=== PATIENT | male | born 1965 | race Caucasian/White ===

== ENCOUNTER 2017-11-15 00:01 | Emergency (ER) | payer BC, SELFPAY ==
[2017-11-15 00:01] VITALS: BP 150/95; PULSE 98; RESP 20; TEMP 37; O2SAT 98; BMI 30.2
--- NOTE | 2017-11-15 00:06 | ED.RN ---
RN CALLED FOR EKG, PULLED OLD EKG'S FOR
--- NOTE | 2017-11-15 00:11 | EKG12_ITS ---
Test Reason : CP Blood Pressure : / mmHG Vent. Rate : 084 BPM Atrial Rate : 084 BPM P-R Int : 170 ms QRS Dur : 078 ms QT Int : 394 ms P-R-T Axes : 041 024 048 degrees QTc Int : 465 ms Normal sinus rhythm Nonspecific T wave abnormality Abnormal ECG Confirmed by TONY MILLER ([id number]), editor magazine [employer] ([id number]) on 11/25/2017 6:21:58 PM Referred By: JENNIFER Confirmed By:TONY MILLER
--- NOTE | 2017-11-15 00:14 | ED.VISSUMM ---
- ER Visit Summary Date of Service: 11/15/17 Chief Complaint: Chest pain History of Present Illness: The patient is a 52 M wax and waning chest pain for the past 2 hours. Substernal radiating to the back, states sharp in nature. States got clammy. No nausea or dyspnea. History of hypertension, hypercholesterolemia. Denies tobacco history. Family history of MIs in his father, grandfather, uncle. Patient states he had a heart cath in 2016 at [facility] due to unclear etiology from syncopal episode. He is followed by Dr. Garrett. States history of paroxysmal atrial fibrillation. No aspirin therapy daily. States takes it when he remembers. States currently pain is 3 out of 10. Physical Examination: General: Alert and oriented ?3, no acute distress HEENT: Normocephalic, atraumatic. Moist mucosa membranes Neck: supple, nontender. Cardiovascular: Regular rate and rhythm, no murmurs Respiratory: Normal breath sounds, symmetric, no distress Abdomen: Soft, nontender, nondistended Extremities: Nontender, no edema, pulses intact ?4. Symmetric radial pulses. Neuro: no focal neurological deficits. Test Results: EKG: Sinus rate of 84, no ST or T-wave changes. Troponin negative ?2. Hemoglobin 14.7. Creatinine 1.22. Emergency Department Course and Treatment: Patient had chest pain, EKG shows no acute changes. His given aspirin and nitro sublingual ?1. He did have a vasovagal episode with nausea. Zofran was given. Fluids was given. Symptoms improved after the one nitro. However with sharp pains to the back, discuss further workup. CT scan obtained to rule out dissection which was negative. There is no PE. Troponin negative ?2. Heart score is a 3. Patient remained symptom-free. 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 He will return to ED if any symptoms return. All questions were answered. Treatment Plan: [] Disposition: Discharge Impression: Acute chest pain This note was generated with [employer] dictation software. It may contain incorrect words, spelling, and punctuation that were not noted in review of the chart prior to signing ED Disposition - Plan for ED Patient: Disposition: Home or Assisted Living Chief Complaint: Chest Pain Diagnosis: Chest pain Instructions: ED Chest Pain Atypical Unkn Cause Referrals: Hill Levine DO [Primary Care Provider] - Crow Garrett MD [STAFF PHYSICIAN] - 1 Day
--- NOTE | 2017-11-15 00:17 | ED.DCSUM_ITS ---
- ER Visit Summary Date of Service: 11/15/17 Chief Complaint: Chest pain History of Present Illness: The patient is a 52 M wax and waning chest pain for the past 2 hours. Substernal radiating to the back, states sharp in nature. States got clammy. No nausea or dyspnea. History of hypertension, hypercholesterolemia. Denies tobacco history. Family history of MIs in his father, grandfather, uncle. Patient states he had a heart cath in 2016 at [facility] due to unclear etiology from syncopal episode. He is followed by Dr. Garrett. States history of paroxysmal atrial fibrillation. No aspirin therapy daily. States takes it when he remembers. States currently pain is 3 out of 10. Physical Examination: General: Alert and oriented ?3, no acute distress HEENT: Normocephalic, atraumatic. Moist mucosa membranes Neck: supple, nontender. Cardiovascular: Regular rate and rhythm, no murmurs Respiratory: Normal breath sounds, symmetric, no distress Abdomen: Soft, nontender, nondistended Extremities: Nontender, no edema, pulses intact ?4. Symmetric radial pulses. Neuro: no focal neurological deficits. Test Results: EKG: Sinus rate of 84, no ST or T-wave changes. Troponin negative ?2. Hemoglobin 14.7. Creatinine 1.22. Emergency Department Course and Treatment: Patient had chest pain, EKG shows no acute changes. His given aspirin and nitro sublingual ?1. He did have a vasovagal episode with nausea. Zofran was given. Fluids was given. Symptoms improved after the one nitro. However with sharp pains to the back, discuss further workup. CT scan obtained to rule out dissection which was negative. There is no PE. Troponin negative ?2. Heart score is a 3. Patient remained symptom-free. Patient will call his domestic helper for outpatient follow-up and further testing. He will return to ED if any symptoms return. All questions were answered. Treatment Plan: [] Disposition: Discharge Impression: Acute chest pain This note was generated with [employer] dictation software. It may contain incorrect words, spelling, and punctuation that were not noted in review of the chart prior to signing ED Disposition - Plan for ED Patient: Disposition: Home or Assisted Living Chief Complaint: Chest Pain Diagnosis: Chest pain Instructions: ED Chest Pain Atypical Unkn Cause Referrals: Hill Levine DO [Primary Care Provider] - Crow Garrett MD [STAFF PHYSICIAN] - 1 Day
[2017-11-15] MEDS: Aspirin 81 MG TAB.CHEW 324 MG PO (00:19)
[2017-11-15 00:20] VITALS: BP 134/88; PULSE 75
[2017-11-15 00:22] LABS: Absolute Lymphocyte Count 3.52 X10^3/ul (0.83-4.51); Absolute Neutrophil Count 3.1 X10^3/uL (2.0-7.7); Basophil# 0.02 X10^3/uL; Basophil% 0.3 % (0-1); Eosinophil# 0.17 X10^3/uL; Eosinophils% 2.2 % (0-5); Hematocrit 42.7 % (40-54); Hemoglobin 14.7 g/dl (13.0-16.5); Lymphocyte # 3.52 X10^3/ul (4.0); Lymphocyte % 45.3 % (19-41); Mean Corp Hgb Conc 34.4 g/gl (32-36); Mean Corpuscular Hgb 29.6 pg (27.0-32.0); Mean Corpuscular Volume 86.1 fL (80-94); Mean Platelet Vol. 8.9 fl (6.2-12.0); Monocyte# 0.94 X10^3/uL; Monocyte% 12.1 % (0-10); Neutrophil # 3.11 X10^3/uL (2.7-7.7); Platelet Count 197 K/mm3 (150-450); RBC Distribution Width CV 12.7 % (11.6-14.6); Red Blood Count 4.96 M/mm3 (4.6-6.2); White Blood Count 7.8 K/mm3 (4.4-11.0)
[2017-11-15] MEDS: Ondansetron 4 MG/2 ML Vial IV (00:30)
[2017-11-15 00:32] LABS: POSITIVE COUNT NO; POSITIVE DIFFERENTIAL NO; POSITIVE MORPHOLOGY NO
[2017-11-15 00:46] LABS: Anion Gap 7 (5-15); BUN 19 mg/dL (7-18); BUN/Creat Ratio 15.6 RATIO (10-20); Calcium,Total 8.5 mg/dL (8.5-10.1); Chloride 107 mmol/L (98-107); Creatinine, Serum 1.22 mg/dL (0.70-1.30); EST Glomerular Filtration Rate 66 mL/min (>60); Est Glom Filt Rate - Afr Amer 79 mL/min (>60); Estimated Creatinine Clearance 71.47 ml/min; Glucose 129 mg/dL (74-106); Potassium 3.2 mmol/L (3.5-5.1); Sodium Level 139 mmol/L (136-145)
--- NOTE | 2017-11-15 00:59 | CT_ITS ---
STUDY: CTA CHEST REASON FOR EXAM: Male, 52 years old. Chest pain with shortness of breath RADIATION DOSAGE (If Supplied By Facility): CTDIvol = ( 16.52 ) mGy, DLP = ( 682.91 ) mGycm TECHNIQUE: The examination was performed with the intravenous administration of 100ML ml of Isovue 370 contrast material. Post-processing of the angiographic images was performed, with multiplanar reformation and 3D reconstruction. Individualized dose optimization techniques were used for this CT. COMPARISON: None. FINDINGS: Normal enhancement of the main pulmonary artery and right and left pulmonary arteries. Normal enhancement of the bilateral peripheral pulmonary arteries. There is no demonstrated pulmonary embolism. Thoracic aorta demonstrates no aneurysmal dilatation or dissection. Borderline cardiomegaly. No pericardial effusion. Normal mediastinum. Normal hilar regions. Normal visualized trachea and bronchi. The lungs are well expanded. Bilateral dependent atelectasis versus scar formation. No confluent airspace infiltrate. Linear atelectasis versus scar along the right minor fissure. No pleural effusion or pneumothorax Normal chest wall structures. Normal osseous structures. Normal visualized upper abdomen. CT/CTA Chest W/WO Contrast IMPRESSION: 1. No evidence of acute cardiopulmonary disease 2. Borderline cardiomegaly, unchanged. 3. Bibasilar atelectasis. Electronically Signed: Anish Walls MD at 2:53 EDT Tel , Service support ,
[2017-11-15 01:26] VITALS: BP 107/64; PULSE 84; RESP 18; O2SAT 95
[2017-11-15 02:05] VITALS: BP 119/69; PULSE 83; RESP 16; O2SAT 97
[2017-11-15 04:12] VITALS: PULSE 76; RESP 16; O2SAT 97
[2017-11-15 04:51] VITALS: PULSE 76; RESP 16; O2SAT 97
== END 2017-11-15 04:52 | disposition home or self-care (01) ==
PROVIDERS: Emergency Provider Emergency Medicine; Family Provider Preventive Medicine Occupational Medicine; PCP Preventive Medicine Occupational Medicine
DX: R07.9 Chest pain, unspecified (principal); I48.0 Paroxysmal atrial fibrillation; I10 Essential (primary) hypertension; E78.00 Pure hypercholesterolemia, unspecified; K21.9 Gastro-esophageal reflux disease without esophagitis; Z79.82 Long term (current) use of aspirin; Z82.49 Family history of ischemic heart disease and other diseases of the circulatory system
CPT/HCPCS: 71275; 80048; 84484; 85025; 93005; 96374; 99284; J7030; Q9967; A4216; J2405

== ENCOUNTER → 2018-08-14 08:13 | Outpatient (CLI) | payer BC, SELFPAY ==
[2018-08-14 10:05] LABS: Absolute Neutrophil Count 3.1 X10^3/uL (2.0-7.7); Basophil# 0.03 X10^3/uL; Basophil% 0.5 % (0-1); Eosinophil# 0.11 X10^3/uL; Eosinophils% 1.8 % (0-5); Hematocrit 47.2 % (40-54); Hemoglobin 15.5 g/dl (13.0-16.5); Mean Corp Hgb Conc 32.8 g/gl (32-36); Mean Corpuscular Hgb 28.9 pg (27.0-32.0); Mean Corpuscular Volume 87.9 fL (80-94); Mean Platelet Vol. 9.7 fl (6.2-12.0); Monocyte% 8.3 % (0-10); Neutrophil # 3.11 X10^3/uL (2.7-7.7); Neutrophil % 51.2 % (47-70); Platelet Count 232 K/mm3 (150-450); RBC Distribution Width CV 12.7 % (11.6-14.6); RBC Distribution Width SD 40.5 fl (35.1-43.9); Red Blood Count 5.37 M/mm3 (4.6-6.2); White Blood Count 6.1 K/mm3 (4.4-11.0)
[2018-08-14 10:09] LABS: POSITIVE COUNT NO; POSITIVE DIFFERENTIAL NO; POSITIVE MORPHOLOGY NO
[2018-08-14 10:34] LABS: ALB/GLOB Ratio 1.2 RATIO (0.9-2.4); AST(SGOT) 29 U/L (15-37); Alanine Aminotransfer ALT/SGPT 45 U/L (16-61); Albumin, Serum 4.1 g/dL (3.2-5.0); Alkaline Phosphatase 79 U/L (45-117); Anion Gap 9 (5-15); BUN 16 mg/dL (7-18); BUN/Creat Ratio 14.2 RATIO (10-20); Calcium,Total 8.4 mg/dL (8.5-10.1); Chloride 106 mmol/L (98-107); Creatinine, Serum 1.13 mg/dL (0.70-1.30); EST Glomerular Filtration Rate 72 mL/min (>60); Est Glom Filt Rate - Afr Amer 87 mL/min (>60); Globulin 3.5 g/dL (2.2-4.2); Glucose 121 mg/dL (74-106); Potassium 3.7 mmol/L (3.5-5.1); Protein, Total 7.6 g/dL (6.4-8.2); Sodium Level 140 mmol/L (136-145)
[2018-08-16 20:06] LABS: HEPATITIS B SURFACE AG Negative (Negative); Hepatitis A AB, Total Negative (Negative); Hepatitis A IgM Antibody Negative (Negative); Hepatitis B Core AB IgM Negative (Negative); Hepatitis B Core Ab Total Negative (Negative); Hepatitis C Ab <0.1 s/co ratio (0.0-0.9); QNTFERON TB Mitogen Value > 10.00 IU/mL (.); QNTFERON TB Nil Value 0.04 IU/mL (.); QNTFERON TB1+ Ag Value 0.03 IU/mL (.); QNTFERON TB2+ Ag Value 0.03 IU/mL (.)
[2018-08-17 09:43] LABS: Hep B Surface Antibodies Non Reactive (.)
[2018-08-17 09:44] LABS: QNTIFERON TB Positive Criteria Negative (Negative)
== END ==
PROVIDERS: Family Provider Preventive Medicine Occupational Medicine; PCP Preventive Medicine Occupational Medicine; Referring Provider Dermatology Pediatric Dermatology; Visit Provider Dermatology Pediatric Dermatology
DX: L40.0 Psoriasis vulgaris (principal); L40.59 Other psoriatic arthropathy
CPT/HCPCS: 36415; 80053; 85025; 86480; 86704; 86705; 86706; 86708; 86709; 86803; 87340

== ENCOUNTER → 2019-05-19 07:55 | Outpatient (CLI) | payer BC, SELFPAY ==
[2019-05-12 14:39] VITALS: BMI 30.5
[2019-05-19 09:09] LABS: AST(SGOT) 25 U/L (15-37); Alanine Aminotransfer ALT/SGPT 34 U/L (16-61); Albumin, Serum 3.5 g/dL (3.2-5.0); Alkaline Phosphatase 66 U/L (45-117); Bilirubin, Direct 0.09 mg/dL (0.00-0.30); Cholesterol 174 mg/dL (200); High Density Lipoprotein 35 mg/dL; Protein, Total 6.5 g/dL (6.4-8.2); Triglycerides 216 mg/dL; Very Low Density Lipoprotein 43 mg/dL (5-40)
== END ==
PROVIDERS: Family Provider Preventive Medicine Occupational Medicine; PCP Preventive Medicine Occupational Medicine; Referring Provider Internal Medicine Cardiovascular Disease; Visit Provider Internal Medicine Cardiovascular Disease
DX: E78.5 Hyperlipidemia, unspecified (principal)
CPT/HCPCS: 36415; 80061; 80076

== ENCOUNTER → 2019-11-11 07:21 | Outpatient (CLI) | payer BC, SELFPAY ==
[2019-05-27 09:22] VITALS: BMI 30.5
[2019-11-11 08:28] LABS: AST(SGOT) 37 U/L (15-37); Alanine Aminotransfer ALT/SGPT 66 U/L (16-61); Albumin, Serum 3.6 g/dL (3.2-5.0); Alkaline Phosphatase 82 U/L (45-117); Anion Gap 6 (5-15); BUN 14 mg/dL (7-18); BUN/Creat Ratio 11.8 RATIO (10-20); Bilirubin, Direct 0.07 mg/dL (0.00-0.30); Calcium,Total 8.3 mg/dL (8.5-10.1); Chloride 113 mmol/L (98-107); Creatinine, Serum 1.19 mg/dL (0.70-1.30); EST Glomerular Filtration Rate 67 mL/min (>60); Est Glom Filt Rate - Afr Amer 81 mL/min (>60); Globulin 3.4 g/dL (2.2-4.2); Glucose 114 mg/dL (74-106); PSA,Total - Annual Screen 0.52 ng/mL (0.00-4.00); Potassium 4.1 mmol/L (3.5-5.1); Sodium Level 143 mmol/L (136-145)
== END ==
PROVIDERS: PCP Preventive Medicine Occupational Medicine; Referring Provider Preventive Medicine Occupational Medicine; Visit Provider Preventive Medicine Occupational Medicine
DX: R74.8 Abnormal levels of other serum enzymes (principal); I10 Essential (primary) hypertension; Z12.5 Encounter for screening for malignant neoplasm of prostate
CPT/HCPCS: 36415; 80048; 80076; 84153; G0103

== ENCOUNTER → 2019-12-10 07:41 | Outpatient (CLI) | payer BC, SELFPAY ==
[2019-05-27 09:22] VITALS: BMI 30.5
[2019-12-10 10:20] LABS: Basophil# 0.05 X10^3/uL; Basophil% 0.7 % (0-1); Eosinophils% 2.8 % (0-5); Hematocrit 46.1 % (40-54); Hemoglobin 15.1 g/dL (13.0-16.5); Lymphocyte % 45.1 % (19-41); Mean Corp Hgb Conc 32.8 g/dL (32-36); Mean Corpuscular Hgb 29.7 pg (27.0-32.0); Mean Corpuscular Volume 90.6 fL (80-94); Monocyte# 0.63 X10^3/uL; Monocyte% 8.9 % (0-10); NRBC Flagged by Analyzer 0 % (0-5); Neutrophil # 2.98 X10^3/uL (2.7-7.7); Neutrophil % 42.1 % (47-70); Platelet Count 233 K/mm3 (150-450); RBC Distribution Width SD 42.9 fl (35.1-43.9); Red Blood Count 5.09 M/mm3 (4.6-6.2); White Blood Count 7.1 K/mm3 (4.4-11.0)
[2019-12-10 10:37] LABS: ALB/GLOB Ratio 1.1 RATIO (0.9-2.4); AST(SGOT) 29 U/L (15-37); Alanine Aminotransfer ALT/SGPT 63 U/L (16-61); Albumin, Serum 3.8 g/dL (3.2-5.0); Alkaline Phosphatase 82 U/L (45-117); Anion Gap 6 (5-15); BUN 20 mg/dL (7-18); BUN/Creat Ratio 17.7 RATIO (10-20); Calcium,Total 8.7 mg/dL (8.5-10.1); Chloride 109 mmol/L (98-107); Creatinine, Serum 1.13 mg/dL (0.70-1.30); EST Glomerular Filtration Rate 71 mL/min (>60); Est Glom Filt Rate - Afr Amer 86 mL/min (>60); Globulin 3.5 g/dL (2.2-4.2); Glucose 151 mg/dL (74-106); Potassium 4.1 mmol/L (3.5-5.1); Protein, Total 7.3 g/dL (6.4-8.2); Sodium Level 139 mmol/L (136-145)
[2019-12-12 20:07] LABS: QNTFERON TB Mitogen Value > 10.00 IU/mL (.); QNTFERON TB Nil Value 0.03 IU/mL (.); QNTFERON TB1+ Ag Value 0.04 IU/mL (.); QNTFERON TB2+ Ag Value 0.02 IU/mL (.)
[2019-12-12 22:31] LABS: QNTIFERON TB Positive Criteria Negative (Negative)
== END ==
PROVIDERS: PCP Preventive Medicine Occupational Medicine; Referring Provider Dermatology Pediatric Dermatology; Visit Provider Dermatology Pediatric Dermatology
DX: L40.0 Psoriasis vulgaris (principal)
CPT/HCPCS: 36415; 80053; 85025; 86480

== ENCOUNTER → 2020-05-11 14:18 | Outpatient (CLI) | payer BC, SELFPAY ==
[2019-05-27 09:22] VITALS: BMI 30.5
--- NOTE | 2020-05-11 14:25 | RAD_ITS ---
STUDY: X-RAY CHEST REASON FOR EXAM: Male, 55 years old. SUSPECTED COVID. SYMPTOMS STARTED SATURDAY. TECHNIQUE: PA and lateral views of the chest. COMPARISON: 12/05/2015. FINDINGS: There is persistent elevation of the right hemidiaphragm. There is no new focal consolidation. Normal size heart. Normal mediastinum and bernardino. Normal visualized pulmonary arteries. Normal visualized aortic arch and descending thoracic aorta. Normal visualized thoracic spine. Normal visualized ribs, clavicles, and shoulders. There is no demonstrated abnormality of the visualized soft tissue structures of the upper abdomen. RAD/Chest PA and Lateral IMPRESSION: No acute cardiopulmonary process. Electronically Signed: Molly Workman MD at 22:46 EST Tel , Service support ,
== END ==
PROVIDERS: PCP Preventive Medicine Occupational Medicine; Referring Provider Internal Medicine Pulmonary Disease; Visit Provider Internal Medicine Pulmonary Disease
DX: R05 Cough (principal); R50.9 Fever, unspecified; Z20.828 Contact with and (suspected) exposure to other viral communicable diseases
CPT/HCPCS: 71046

== ENCOUNTER 2020-06-18 14:44 | Emergency (ER) | payer BC, SELFPAY ==
[2019-05-27 09:22] VITALS: BMI 30.5
[2020-06-18 14:45] VITALS: BP 162/113; PULSE 82; RESP 22; TEMP 36.1; O2SAT 98; BMI 31.1
--- NOTE | 2020-06-18 15:04 | EKG12_ITS ---
Test Reason : CP Blood Pressure : / mmHG Vent. Rate : 080 BPM Atrial Rate : 080 BPM P-R Int : 160 ms QRS Dur : 084 ms QT Int : 400 ms P-R-T Axes : 042 028 061 degrees QTc Int : 461 ms Normal sinus rhythm with sinus arrhythmia Nonspecific T wave abnormality Prolonged QT Abnormal ECG Confirmed by JUSTIN GONZALEZ, SUGEY ([id number]), editor book CHELSEA KOWALSKI ([id number]) on 06/20/2020 8:47:22 AM Referred By: PRO Confirmed By:SUGEY ANDERSON MD
[2020-06-18 15:10] VITALS: O2SAT 97
--- NOTE | 2020-06-18 15:14 | RAD_ITS ---
STUDY: X-RAY CHEST REASON FOR EXAM: Male, 55 years old. CP started to left chest around 12 today. pain to back and also some SOB TECHNIQUE: AP COMPARISON: 12/05/2015 FINDINGS: The lungs are clear and expanded. There is no demonstrated pleural abnormality. Normal size heart. Normal mediastinum and bernardino. Normal visualized pulmonary arteries. Normal visualized aortic arch and descending thoracic aorta. Normal visualized thoracic spine. Normal visualized ribs, clavicles, and shoulders. There is no demonstrated abnormality of the visualized soft tissue structures of the upper abdomen. RAD/Chest 1 View (Portable) IMPRESSION: Stable, nonacute portable x-ray examination of the chest. Electronically Signed: Benjamin Campoverde MD (Brooks) at 15:28 EST , Service support ,
--- NOTE | 2020-06-18 15:17 | CT_ITS ---
STUDY: CTA CHEST REASON FOR EXAM: Male, 55 years old. CP AND BACK PAIN, ? DISSECTION, A-FIB, HTN, GERD, HAD HEART CATH RADIATION DOSAGE (If Supplied By Facility): CTDIvol = ( 14.57 ) mGy, DLP = ( 710.91 ) mGycm TECHNIQUE: The examination was performed with the intravenous administration of IV 100mL Isovue-370. Post-processing of the angiographic images was performed, with multiplanar reformation and 3D reconstruction. Individualized dose optimization techniques were used for this CT. COMPARISON: 11/15/2017 FINDINGS: Normal enhancement of the main pulmonary artery and right and left pulmonary arteries. Normal enhancement of the bilateral peripheral pulmonary arteries. There is no demonstrated pulmonary embolism. Normal thoracic aorta and visualized great vessels. There is no demonstrated aortic dissection. Normal heart and pericardium. Normal mediastinum. Normal hilar regions. Normal visualized trachea and bronchi. The lungs are well expanded. Minimal atelectasis in the lung bases. Normal pleura. Normal chest wall structures. Normal osseous structures. There is diffuse fatty infiltration of the liver. CT/CTA Chest W/WO Contrast IMPRESSION: No central or segmental pulmonary embolism. Electronically Signed: Benjamin Campoverde MD (Brooks) at 15:53 EST , Service support ,
[2020-06-18 15:19] LABS: Absolute Neutrophil Count 4.1 X10^3/uL (2.0-7.7); Basophil# 0.05 X10^3/uL; Basophil% 0.6 % (0-1); Eosinophils% 1.3 % (0-5); Hematocrit 46.5 % (40-54); Hemoglobin 15.4 g/dL (13.0-16.5); Lymphocyte % 38.4 % (19-41); Mean Corp Hgb Conc 33.1 g/dL (32-36); Mean Corpuscular Hgb 29.6 pg (27.0-32.0); Mean Corpuscular Volume 89.4 fL (80-94); Mean Platelet Vol. 9.4 fl (6.2-12.0); Monocyte# 0.55 X10^3/uL; NRBC Flagged by Analyzer 0 % (0-5); Neutrophil # 4.08 X10^3/uL (2.7-7.7); Neutrophil % 52.3 % (47-70); Platelet Count 266 K/mm3 (150-450); RBC Distribution Width CV 12.5 % (11.6-14.6); RBC Distribution Width SD 41.3 fl (35.1-43.9); White Blood Count 7.8 K/mm3 (4.4-11.0)
--- NOTE | 2020-06-18 15:23 | ED.VISSUMM ---
- ER Visit Summary Date of Service: 06/18/20 Chief Complaint: Back and chest pain History of Present Illness: The patient is a 55 M history of hypertension high cholesterol. Prior cardiac cath which he states was negative in 2016 and at [facility]. Patient states around 11 AM today he had atraumatic mid to upper back pain that started radiating to his chest. Associated dyspnea. He denies any falls or trauma. No history of DVT or PE. No pleuritic nature to the pain. No hemoptysis. No leg pain or swelling. He denies any recent travel, surgery or immobilization. Is never had pain like this before. Currently he says he is almost pain-free. Physical Examination: Middle-aged male no acute distress initial blood pressure elevated 162/113. Pulse ox 90% on room air no signs hypoxia. H EENT exam unremarkable. Neck nontender no lymphadenopathy. No JVD. Lungs clear to auscultation bilaterally. Heart regular rhythm rate about 80 no murmur. Chest wall nontender. Abdomen soft nontender normal bowel sounds no peritoneal signs. Patient moving all 4 extremities. Neurovascular intact. Equal symmetrical radial pulses. Calves are nontender without edema or cords. Back is nontender no reproducible tenderness. Neurologically is awake alert with no focal motor or sensory deficits. Test Results: EKG shows a normal sinus rhythm rate 80 with no acute signs of DC or ischemia. Chest x-ray 1 view interpreted by myself and also the radiologist showed no acute normality. Normal cardiac silhouette and mediastinum. CBC normal white count 7. Hemoglobin 15. Chemistries unremarkable normal creatinine and gap. Troponin normal. D-dimer normal. CTA chest showed no acute abnormality. No dissection nor any pulmonary emboli read by the radiologist and reviewed by me. rEPEAT exam patient is doing well at 5:53 PM. I went over all test results with both he and his on the phone. They feel comfortable him being discharged home. Emergency Department Course and Treatment: Patient be worked up both for cardiac chest pain and possible dissection. Concern is that he is hypertensive and the pain started in his back and then radiated to his chest. He will receive aspirin. Will undergo cardiac work-up along with a CTA of his chest for dissection. Treatment Plan: Outpatient follow-up. Return if worse. Disposition: Discharge Impression: Acute back and chest pain of uncertain etiology History of hypertension and high cholesterol This note was generated with Dragon dictation software. It may contain incorrect words, spelling, and punctuation that were not noted in review of the chart prior to signing ED Disposition - Plan for ED Patient: Referrals: Hill Levine DO [Primary Care Provider] -
[2020-06-18] MEDS: Aspirin 81 MG TAB.CHEW 324 MG PO (15:31)
[2020-06-18 15:34] LABS: Anion Gap 4 (5-15); BUN 16 mg/dL (7-18); BUN/Creat Ratio 14.8 RATIO (10-20); Calcium,Total 8.7 mg/dL (8.5-10.1); Chloride 108 mmol/L (98-107); Creatinine, Serum 1.08 mg/dL (0.70-1.30); EST Glomerular Filtration Rate 75 mL/min (>60); Est Glom Filt Rate - Afr Amer 91 mL/min (>60); Estimated Creatinine Clearance 77.92 ml/min; Glucose 90 mg/dL (74-106); Potassium 3.8 mmol/L (3.5-5.1); Sodium Level 140 mmol/L (136-145)
[2020-06-18 15:39] LABS: D-Dimer Quantitative (DVT/PE) <= 0.27 FEU/ug/m (0.27-0.49)
[2020-06-18 17:16] VITALS: BP 132/75; PULSE 70; RESP 14; O2SAT 97
--- NOTE | 2020-06-18 17:56 | ED.DEP ---
ED Disposition - Plan for ED Patient: Disposition: Home or Assisted Living Instructions: ED Chest Pain, Uncertain Cause Referrals: Hill Levine DO [Primary Care Provider] - 1 Week Additional Instructions: All your test today were normal. Of your primary care physician. Return if you are feeling worse.
[2020-06-18 18:02] VITALS: BP 135/91; PULSE 69; RESP 20; O2SAT 96
== END 2020-06-18 18:14 | disposition home or self-care (01) ==
PROVIDERS: Emergency Provider Emergency Medicine; PCP Preventive Medicine Occupational Medicine
DX: M54.9 Dorsalgia, unspecified (principal); R07.9 Chest pain, unspecified; I10 Essential (primary) hypertension; E78.00 Pure hypercholesterolemia, unspecified; R06.00 Dyspnea, unspecified
CPT/HCPCS: 71045; 71275; 80048; 84484; 85025; 85379; 93005; 99285; Q9967

== ENCOUNTER → 2020-12-02 08:10 | Outpatient (CLI) | payer BC, SELFPAY ==
[2020-12-04 12:06] LABS: QNTFERON TB Mitogen Value > 10.00 IU/mL (.); QNTFERON TB Nil Value 0.04 IU/mL (.); QNTFERON TB1+ Ag Value 0.04 IU/mL (.); QNTFERON TB2+ Ag Value 0.04 IU/mL (.)
[2020-12-04 13:11] LABS: QNTIFERON TB Positive Criteria Negative (Negative)
== END ==
PROVIDERS: PCP Preventive Medicine Occupational Medicine; Referring Provider Dermatology Pediatric Dermatology; Visit Provider Dermatology Pediatric Dermatology
DX: L40.0 Psoriasis vulgaris (principal); L40.59 Other psoriatic arthropathy; Z79.899 Other long term (current) drug therapy
CPT/HCPCS: 36415; 86480

== ENCOUNTER 2021-06-26 13:09 | Outpatient (CLI) | payer OTHER, SELFPAY ==
[2021-06-26 13:22] VITALS: BP 136/102; PULSE 66; RESP 16; TEMP 36.5; O2SAT 100; BMI 28.0
[2021-06-26] MEDS: 0.9% Saline Lock 10 ML Syringe IV (13:25)
[2021-06-26 14:16] VITALS: BP 132/87; PULSE 64; RESP 16; TEMP 36.9; O2SAT 100
[2021-06-26 14:59] VITALS: BP 130/88; PULSE 65; RESP 16; TEMP 36.9; O2SAT 98
== END 2021-06-26 23:59 | disposition home or self-care (01) ==
LOC: MS3OUT 13:09 → MS3 13:09
PROVIDERS: PCP Preventive Medicine Occupational Medicine; Referring Provider Internal Medicine Pulmonary Disease; Visit Provider Internal Medicine Pulmonary Disease
DX: U07.1 COVID-19 (principal)
CPT/HCPCS: J7050; M0243; A4216; Q0244

== ENCOUNTER → 2022-02-26 | Outpatient (CLI) | payer OTHER, SELFPAY ==
[2022-02-26 10:15] LABS: Hemoglobin A1c 6.6 % (3.8-5.6)
[2022-02-26 10:16] LABS: Microalbumin,Random Urine 32.5 mg/L (NO RANGE EST.); Microalbumin:Creatinine Ratio 10.2 mg/g CRE (<30 mg/g CRE)
[2022-02-26 11:01] LABS: ALB/GLOB Ratio 1.1 RATIO (0.9-2.4); AST(SGOT) 26 U/L (15-37); Alanine Aminotransfer ALT/SGPT 45 U/L (16-61); Albumin, Serum 3.4 g/dL (3.2-5.0); Alkaline Phosphatase 67 U/L (45-117); Anion Gap 6 (5-15); BUN 12 mg/dL (7-18); BUN/Creat Ratio 11.9 RATIO (10-20); Calcium,Total 8.7 mg/dL (8.5-10.1); Chloride 109 mmol/L (98-107); Cholesterol 180 mg/dL (200); Creatinine, Serum 1.01 mg/dL (0.70-1.30); EST Glomerular Filtration Rate 80 mL/min (>60); Est Glom Filt Rate - Afr Amer 97 mL/min (>60); Globulin 3.2 g/dL (2.2-4.2); Glucose 120 mg/dL (74-106); High Density Lipoprotein 34 mg/dL; Potassium 3.9 mmol/L (3.5-5.1); Protein, Total 6.6 g/dL (6.4-8.2); Sodium Level 141 mmol/L (136-145); Triglycerides 273 mg/dL; Very Low Density Lipoprotein 55 mg/dL (5-40)
== END | disposition home or self-care (01) ==
LOC: LAB 09:10
PROVIDERS: PCP Preventive Medicine Occupational Medicine; Visit Provider Preventive Medicine Occupational Medicine
DX: E78.5 Hyperlipidemia, unspecified (principal); E11.9 Type 2 diabetes mellitus without complications; I10 Essential (primary) hypertension
CPT/HCPCS: 36415; 80053; 80061; 82043; 82570; 83036

== ENCOUNTER → 2023-10-11 | Outpatient (CLI) | payer OTHER, SELFPAY ==
--- NOTE | 2023-10-11 12:54 | CDU_ITS ---
Reason For Study: AMAUROSIS FUGAX Rt. Velocities/BP Lt. Velocities/BP Prox CCA 68.8/22.6 cm/sec. Prox CCA 83.4/29.6 cm/sec. Mid CCA 61.1/21.5 cm/sec. Mid CCA 74.6/25.2 cm/sec. Dist CCA 64.4/23.7 cm/sec. Dist CCA 70.2/28.5 cm/sec. Prox ICA 39.6/17.9 cm/sec. Prox ICA 45.0/18.6 cm/sec. Mid ICA 61.3/31.1 cm/sec. Mid ICA 48.3/23.0 cm/sec. Dist ICA 54.7/26.4 cm/sec. Dist ICA 66.9/30.7 cm/sec. Rt. ICA/CCA = 61.3/61.1=1.0. Lt. ICA/CCA = 66.9/74.6=0.9. Prox ECA 62.2/16.0 cm/sec. Prox ECA 61.4/14.2 cm/sec. Rt. Vert. 25.2/7.4 cm/sec. Lt. Vert. 22.1/8.0 cm/sec. Right Extracranial There is intimal thickening but no significant atherosclerotic plaque noted in the right common carotid artery. There is homogeneous, smooth atherosclerotic plaque noted in the right internal carotid artery. There is no significant atherosclerotic plaque noted in the right external carotid artery. Antegrade flow is noted in the right vertebral artery. Left Extracranial There is intimal thickening but no significant atherosclerotic plaque noted in the left common carotid artery. There is intimal thickening but no significant atherosclerotic plaque noted in the left internal carotid artery. There is intimal thickening but no significant atherosclerotic plaque noted in the left external carotid artery. Antegrade flow is noted in the left vertebral artery. Procedure Carotid Duplex 13826. This is a Carotid Duplex examination using B-mode, color flow and specral Doppler. Exam performed in department. VL/Carotid Duplex Ultrasound Interpretation Summary Mild (<50%) stenosis right extracranial internal carotid. Normal left extracranial internal carotid. Patent and antegrade vertebrals bilaterally. Ordering Physician: Scott Arteaga Referring Physician: Hill Levine Performed By: Lucía Camacho RDCS, RVT
== END | disposition home or self-care (01) ==
LOC: CVS 12:50
PROVIDERS: PCP Preventive Medicine Occupational Medicine; Referring Provider Ophthalmology; Visit Provider Ophthalmology
DX: G45.3 Amaurosis fugax (principal)
CPT/HCPCS: 93880